=== PATIENT | female | born 1960 | race Caucasian/White ===

== ENCOUNTER 2016-06-22 12:15 | Emergency (ER) | payer BC ==
[~2016-06-22] VITALS: Ht 162.5 cm; Wt 62.6 kg
[2016-06-22 12:21] VITALS: BP 165/83
[2016-06-22] MEDS ORDERED: PREDNISONE5 MG PO (12:22)
[2016-06-22] MEDS ORDERED: SEPTRA DS 800 M1 TAB PO (12:23)
[2016-06-22] MEDS ORDERED: PROGRAF0.5 MG PO (12:23)
[2016-06-22] MEDS ORDERED: VITAMIN D1000 IU PO (12:24)
[2016-06-22] MEDS ORDERED: PROGRAF5 MG PO (12:24)
[2016-06-22] MEDS ORDERED: ASPIRIN CHEWABL81 MG PO (12:24)
[2016-06-22] MEDS ORDERED: FOSAMAX70 M1 PO (12:25)
[2016-06-22] MEDS ORDERED: TOBREX OPHTH S2.5 ML OPH (12:41)
[2016-06-22 12:44] LABS: BASO % 0.6 % (0.0-1.0); EOS # 0.1 10*3/uL (0.0-0.4); EOS % 0.8 % (1.0-4.0); HEMATOCRIT 43.5 % (37.0-47.0); HEMOGLOBIN 14.9 g/dl (12.0-16.0); LYMPH # 0.9 10*3/uL (1.3-4.4); LYMPH % 14.7 % (27.0-41.0); MEAN CELL VOLUME 94.2 fl (81.0-99.0); MEAN CORPUSCULAR HGB 32.3 pg (27.0-31.0); MEAN CORPUSCULAR HGB CONC 34.3 g/dl (33.0-37.0); MEAN PLATELET VOLUME 9.7 fl (9.6-12.3); MONO # 0.3 10*3/uL (0.1-1.0); MONO % 4.3 % (3.0-9.0); NEUT % 79.1 % (47.0-73.0); PLATELET COUNT AUTOMATED 200 10*3/uL (130-400); RED BLOOD COUNT 4.62 10*6/uL (4.10-5.10); RED CELL DISTRI WIDTH 12.9 % (0-14.5); WHITE BLOOD COUNT 6.3 10*3/uL (4.8-10.8)
[2016-06-22 12:53] LABS: PROTHROMBIN TIME 10.7 SECONDS (9.0-12.4)
[2016-06-22 12:59] LABS: ALKALINE PHOSPHATASE 45 U/L (45-117); BILIRUBIN, TOTAL 0.7 mg/dl (0.2-1.0); BUN 16 mg/dl (7-24); CARBON DIOXIDE 28 mmol/L (21-32); CHLORIDE 106 mmol/L (98-107); EST GLOM FILT AFRICAN AMERICAN > 60 ml/min; GLUCOSE 99 mg/dL (65-99); POTASSIUM 4.3 mmol/L (3.5-5.1); SGOT/AST 35 IU/L (3-35); SGPT/ALT 36 U/L (12-78); SODIUM 139 mmol/L (136-145); TOTAL PROTEIN 7.6 gm/dL (6.4-8.2)
== END 2016-06-22 14:34 | disposition home or self-care (01) ==
LOC: ED 12:15
PROVIDERS: Nurse Practitioner Family
DX: H11.32 Conjunctival hemorrhage, left eye (principal); R03.0 Elevated blood-pressure reading, without diagnosis of hypertension; Z79.82 Long term (current) use of aspirin; Z79.899 Other long term (current) drug therapy

== ENCOUNTER → 2017-12-24 | Outpatient (CLI) | payer BC ==
[~2017-12-24] MED LIST: ASPIRIN CHEWABL81 MG PO; FOSAMAX70 M1 PO; PREDNISONE5 MG PO; PROGRAF0.5 MG PO; PROGRAF5 MG PO; SEPTRA DS 800 M1 TAB PO; TOBREX OPHTH S2.5 ML OPH; VITAMIN D1000 IU PO
== END | disposition home or self-care (01) ==
LOC: MAMMO 12:51
DX: Z12.31 Encounter for screening mammogram for malignant neoplasm of breast (principal); Z01.419 Encounter for gynecological examination (general) (routine) without abnormal findings; Z13.820 Encounter for screening for osteoporosis; E55.9 Vitamin D deficiency, unspecified; Z78.0 Asymptomatic menopausal state

== ENCOUNTER → 2024-10-18 | Outpatient (CLI) | payer BC | END | disposition home or self-care (01) | LOC: RAD 03:24 | PROVIDERS: ATTEND Family Medicine | DX: Z01.818 Encounter for other preprocedural examination (principal); I51.7 Cardiomegaly ==